=== PATIENT | female | born 1945 | race Caucasian/White ===

== ENCOUNTER 2020-05-02 12:16 | Day surgery (SDC) | payer MEDICARE, OTHER ==
[2020-05-02] VITALS (8 sets, daily range): BP systolic 143–187; BP diastolic 61–91
[~2020-05-02] VITALS: Ht 157.5 cm; Wt 88.0 kg
[2020-05-02] MEDS ORDERED: LORazepam 0.5 MG tablet PO PRN (12:45)
[2020-05-02] MEDS ORDERED: normal saline 1,000 ML IV SCH (12:45)
[2020-05-02] MEDS ORDERED: diphenhydrAMINE 25mg capsule PO PRN (12:45)
[2020-05-02] MEDS ORDERED: NITR0.4T51 SL (14:03)
[2020-05-02] MEDS ORDERED: MULT-1074 PO (14:04)
[2020-05-02] MEDS ORDERED: BUPR150T8 PO (14:04)
[2020-05-02] MEDS ORDERED: OMEG1CAP46 PO (14:05)
[2020-05-02] MEDS ORDERED: [UNRECOGNIZED DRUG - CODE] PO (14:06)
[2020-05-02] MEDS ORDERED: ACET-3414 PO (14:07)
[2020-05-02] MEDS ORDERED: ASPI81TA52 PO (14:08)
[2020-05-02] MEDS ORDERED: fentaNYL/PF 50MCG/1 ML 2ML syringe ONE (15:53)
[2020-05-02] MEDS ORDERED: nitroGLYCERIN-Tridil 50MG/D5W 250 ML IV ONE (15:53)
[2020-05-02] MEDS ORDERED: midazolam 2 mg/2 ml injection ONE (15:53)
[2020-05-02] MEDS ORDERED: verapamil 2.5 mg/ml inj IV ONE (15:53)
[2020-05-02] MEDS ORDERED: heparin 1,000unit/ml 10ml vial 10 ML ONE (15:54)
[2020-05-02] MEDS ORDERED: iohexol 350MG/ML 100ml bottle IV ONE (15:54)
[2020-05-02] MEDS ORDERED: LIDOcaine 1% (10mg/ml)w/preservative injection 20ml MDV ONE (15:54)
== END 2020-05-02 18:35 | disposition home or self-care (01) ==
LOC: SSTAY O 12:16
PROVIDERS: ATTEND Student in an Organized Health Care Education/Training Program
DX: R94.39 Abnormal result of other cardiovascular function study (principal); R07.89 Other chest pain; I25.10 Atherosclerotic heart disease of native coronary artery without angina pectoris; I10 Essential (primary) hypertension; E78.5 Hyperlipidemia, unspecified; E66.9 Obesity, unspecified; Z68.35 Body mass index [BMI] 35.0-35.9, adult; Z86.14 Personal history of Methicillin resistant Staphylococcus aureus infection; Z87.891 Personal history of nicotine dependence; Z79.899 Other long term (current) drug therapy; Z79.82 Long term (current) use of aspirin
CPT/HCPCS: 93005; 93458; 99152; 99153; C1769; C1894; J1644; J2001; J2250; J3010; J7030; Q0163; Q9967; A4620; J3490